=== PATIENT | female | born 1960 | race African-American/Black ===

== ENCOUNTER 2021-08-01 17:13 | Emergency (ER) | payer OTHER, SELFPAY ==
[2021-08-01 17:16] VITALS: BP 155/110; PULSE 73; RESP 18; TEMP 36.4; O2SAT 100
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
[2021-08-01 17:59] VITALS: BP 158/90; PULSE 80; RESP 18; TEMP 36.8; O2SAT 97
== END 2021-08-01 18:24 | disposition home or self-care (01) ==
LOC: ANHED 18:07
PROVIDERS: Emergency Provider Nurse Practitioner Family
DX: S16.1XXA Strain of muscle, fascia and tendon at neck level, initial encounter (principal); V43.52XA Car driver injured in collision with other type car in traffic accident, initial encounter
CPT/HCPCS: 99283; L0140